=== PATIENT | male | born 1985 | race Caucasian/White ===

== ENCOUNTER 2021-12-11 18:02 | Emergency (ER) | payer OTHER ==
[2021-12-11] MEDS ORDERED: Ondansetron PF 4 MG/2 ML Vial ONE (18:42)
[2021-12-11] MEDS ORDERED: Morphine 4 MG/ML VIAL ONE (18:42)
== END 2021-12-11 20:04 | disposition home or self-care (01) ==
LOC: CSHERS 18:02
DX: M54.50 Low back pain, unspecified (principal); V43.52XA Car driver injured in collision with other type car in traffic accident, initial encounter
CPT/HCPCS: 70450; 71045; 72125; 72128; 72131; 96374; 96375; J2270; J2405